=== PATIENT | male | born 1975 | race African-American/Black ===

== ENCOUNTER 2016-11-03 15:24 | Emergency (ER) | payer OTHER ==
[~2016-11-03] VITALS: Ht 170.2 cm; Wt 46.0 kg
[~2016-11-03 15:24] MED LIST: AZIT250T94 PO; LOPE2CAP PO; METR500T PO
[2016-11-03 15:32] VITALS: Ht 170.2 cm; Wt 46.0 kg
[2016-11-03] MEDS ORDERED: LACTATED RINGER'S 1,000 ML IV STA (17:06)
[2016-11-03 17:27] LABS: BASOPHIL # 0.1 10^3/ul (0.0-0.1); BASOPHILS % 0.8 % (0.0-2.0); EOSINOPHILS # 0.1 10^3/ul (0.0-0.5); EOSINOPHILS % 1.9 % (0.0-7.0); HEMATOCRIT 36.2 % (42.0-52.0); HEMOGLOBIN 12.4 g/dl (14.0-18.0); LYMPHOCYTES # 1.6 10^3/ul (0.8-2.9); LYMPHOCYTES % 25.7 % (15.0-51.0); MEAN CORPUSCULAR HEMOGLOBIN 29.5 pg (29.0-33.0); MEAN CORPUSCULAR HGB CONC 34.3 g/dl (32.0-37.0); MEAN CORPUSCULAR VOLUME 86.2 fl (82.0-101.0); MEAN PLATELET VOLUME 10.5 fl (7.4-10.4); MONOCYTE # 0.7 10^3/ul (0.3-0.9); MONOCYTES % 10.8 % (0.0-11.0); NEUTROPHIL # 3.8 10^3/ul (1.6-7.5); NEUTROPHILS % 60.5 % (39.0-77.0); PLATELET COUNT 234 10^3/UL (140-415); RED CELL DISTRIBUTION WIDTH 12.2 % (11.5-14.5); WHITE BLOOD COUNT 6.3 10^3/ul (4.8-10.8)
[2016-11-03 17:47] LABS: ALANINE AMINOTRANSFERASE 49 IU/L (13-69); ALBUMIN 3.7 g/dl (3.3-4.9); ALBUMIN/GLOBULIN RATIO 1.19; ALKALINE PHOSPHATASE 94 IU/L (42-121); ANION GAP 17 (8-16); ASPARTATE AMINO TRANSFERASE 29 IU/L (15-46); BILIRUBIN,INDIRECT 0.2 mg/dl (0-1.1); BILIRUBIN,TOTAL 0.2 mg/dl (0.2-1.3); BLOOD UREA NITROGEN 10 mg/dl (7-20); CALCIUM 8.5 mg/dl (8.4-10.2); CARBON DIOXIDE 23 mmol/L (21-31); CHLORIDE 93 mmol/L (97-110); CREATININE 1.08 mg/dl (0.61-1.24); POTASSIUM 3.6 mmol/L (3.5-5.1); SODIUM 129 mmol/L (135-144); TOTAL PROTEIN 6.8 g/dl (6.1-8.1)
[2016-11-03 18:13] LABS: GLUCOSE 657 mg/dl (70-220)
[2016-11-03] MEDS ORDERED: INSULIN HUMAN REGULAR 100 UNIT in SOD CHLORIDE 0.9% 99 ML IV STA (18:14)
[2016-11-03] MEDS ORDERED: INSULIN REGULAR 10 ML INJ IV STA (18:14)
[2016-11-03 18:49] LABS: ACETONE NEGATIVE (NEGATIVE)
[2016-11-03 18:52] LABS: ADD UMIC NO; UR ASCORBIC ACID NEGATIVE (NEGATIVE); UR BILIRUBIN (Dip) NEGATIVE (NEGATIVE); UR BLOOD (Dip) NEGATIVE (NEGATIVE); UR CLARITY CLEAR (CLEAR); UR COLOR COLORLESS (YELLOW); UR GLUCOSE (Dip) 3+ mg/dL (NEGATIVE); UR KETONES (Dip) NEGATIVE (NEGATIVE); UR LEUKOCYTE ESTERASE (Dip) NEGATIVE Leu/ul (NEGATIVE); UR NITRITE (Dip) NEGATIVE (NEGATIVE); UR SPECIFIC GRAVITY (Dip) 1.029 (1.003-1.030); UR TOTAL PROTEIN (Dip) NEGATIVE (NEGATIVE); UR UROBILINOGEN (Dip) NEGATIVE (NEGATIVE)
--- NOTE | 2016-11-03 19:15 | ERD ---
ER Documentation Chief Complaint Date/Time DATE: 11/03/16 TIME: 19:12 Chief Complaint Hyperglycemia HPI This a 41-year-old insulin-dependent diabetic who states he is taking his insulin but he has been having chronic diarrhea for 3 months. He is seen doctors about it and told in the do not know what is wrong. The patient says that he has some moist diarrhea that he did have spontaneous bowel movements at times when he coughs. He also states he feels weak and tired today. The patient is a very poor historian. He says he has been taking his insulin but her sugar has been running elevated he does not know the numbers. No vomiting no abdominal pain headaches. He does just complain of generalized weakness and malaise ROS All systems reviewed and are negative except as per history of present illness. Medications Home Meds Active Scripts Diphenoxylate HCl/Atropine (Lomotil 2.5-0.025 mg Tablet) 1 Each Tablet, 1 TAB PO QID Y for DIARRHEA, #10 TAB Prov:JERROD BOB DO 11/03/16 Ciprofloxacin Hcl* (Ciprofloxacin Hcl*) 500 Mg Tablet, 500 MG PO BID for 10 Days , TAB Prov:JERROD BOB DO 11/03/16 Metronidazole* (Flagyl*) 500 Mg Tablet, 500 MG PO TID for 10 Days, TAB Prov:JERROD BOB. DO 11/03/16 Metronidazole* (Flagyl*) 500 Mg Tablet, 500 MG PO BID for 7 Days, TAB Prov:DOMENICA CHAPMAN MD 12/08/15 Azithromycin* (Zithromax*) 250 Mg Tablet, 250 MG PO .ZPACK DIRECTED, #6 TAB TAKE 500 MG (2 TABS) THE FIRST DAY THEN 250 MG (1 TAB) DAYS 2-5 Prov:DOMENICA CHAPMAN MD 12/08/15 Loperamide Hcl* (Imodium*) 2 Mg Capsule, 2 MG PO .AFTER EA LOOSE BM Y for DIARRHEA, #15 TAB Prov:DOMENICA CHAPMAN MD 12/08/15 Reported Medications [None] No Conflict Check 07/15/10 Allergies Allergies: Coded Allergies: No Known Allergy (Unverified , 12/08/15) PMhx/Soc Medical and Surgical Hx: pt denies Surgical Hx History of Surgery: No Anesthesia Reaction: No Hx Neurological Disorder: No Hx Respiratory Disorders: No Hx Cardiac Disorders: No Hx Psychiatric Problems: No Hx Miscellaneous Medical Probl: Yes (type 1 diabetes) Hx Alcohol Use: No Hx Substance Use: Yes (marijuana and crystal meth) Hx Tobacco Use: Yes Smoking Status: Current every day smoker FmHx Family History: No coronary disease Physical Exam Vitals Vital Signs Date Time Temp Pulse Resp B/P Pulse Ox O2 Delivery O2 Flow Rate FiO2 11/03/16 20:55 98.1 72 20 129/87 96 Room Air 11/03/16 18:52 94 17 14/91 100 Room Air 11/03/16 17:19 85 15 132/97 98 Room Air 11/03/16 15:32 98.0 101 20 140/90 98 Physical Exam Const: Well-developed, well-nourished Head: Atraumatic, normocephalic Eyes: Normal Conjunctiva, PERRLA, EOMI, normal sclera, no nystagmus ENT: Normal External Ears, Nose and Mouth, moist mucus membranes. Neck: Full range of motion. No meningismus, no lymphadenopathy. Resp: Clear to auscultation bilaterally, no wheezing, rhonchi, rales Cardio: Regular rate and rhythm, no murmurs, S1 S2 present Abd: Soft, non tender x 4, non distended. Normal bowel sounds, no guarding or rebound, no pulsitile abdominal masses or bruits Skin: No petechiae or rashes, no ecchymosis , no maculopapular rash Back: No midline or flank tenderness Ext: No cyanosis, or edema, FROM x 4, normal inspection, neurovascularly intact x 4 Neur: Awake and alert, STR 5/5 x 4, sensation intact x 4, no focal findings, cerebellum intact Psych: [Flat affect, limited conversation most of the history is given from the girlfriend Result Diagram: 11/03/16 1712 11/03/16 1712 Results 24 hrs Laboratory Tests Test 11/03/16 16:16 11/03/16 17:12 11/03/16 18:00 11/03/16 18:52 Bedside Glucose > 595mg/dL 535mg/dL White Blood Count 6.310^3/ul Red Blood Count 4.2010^6/ul Hemoglobin 12.4g/dl Hematocrit 36.2% Mean Corpuscular Volume 86.2fl Mean Corpuscular Hemoglobin 29.5pg Mean Corpuscular Hemoglobin Concent 34.3g/dl Red Cell Distribution Width 12.2% Platelet Count 96462^3/UL Mean Platelet Volume 10.5fl Neutrophils % 60.5% Lymphocytes % 25.7% Monocytes % 10.8% Eosinophils % 1.9% Basophils % 0.8% Nucleated Red Blood Cells % 0.0/100WBC Neutrophils # 3.810^3/ul Lymphocytes # 1.610^3/ul Monocytes # 0.710^3/ul Eosinophils # 0.110^3/ul Basophils # 0.110^3/ul Nucleated Red Blood Cells # 0.010^3/ul Sodium Level 129mmol/L Potassium Level 3.6mmol/L Chloride Level 93mmol/L Carbon Dioxide Level 23mmol/L Anion Gap 17 Blood Urea Nitrogen 10mg/dl Creatinine 1.08mg/dl Glucose Level 657mg/dl Calcium Level 8.5mg/dl Total Bilirubin 0.2mg/dl Direct Bilirubin 0.00mg/dl Indirect Bilirubin 0.2mg/dl Acetone Level (Chemistry) NEGATIVE Aspartate Amino Transf (AST/SGOT) 29IU/L Alanine Aminotransferase (ALT/SGPT) 49IU/L Alkaline Phosphatase 94IU/L Total Protein 6.8g/dl Albumin 3.7g/dl Globulin 3.10g/dl Albumin/Globulin Ratio 1.19 Urine Color COLORLESS Urine Clarity CLEAR Urine pH 6.0 Urine Specific [place] 1.029 Urine Ketones NEGATIVEmg/dL Urine Nitrite NEGATIVEmg/dL Urine Bilirubin NEGATIVEmg/dL Urine Urobilinogen NEGATIVEmg/dL Urine Leukocyte Esterase NEGATIVELeu/ul Urine Hemoglobin NEGATIVEmg/dL Urine Glucose 3+mg/dL Urine Total Protein NEGATIVEmg/dl Test 11/03/16 20:43 Bedside Glucose 308mg/dL Current Medications Medications (Trade) Dose Ordered Sig/Malik Route PRN Reason Start Time Stop Time Status Last Admin Dose Admin Lactated Ringer's (Lr) 1,000 ml @ 1,000 mls/hr Q1H STAT IV 11/03/16 17:06 11/03/16 18:05 DC 11/03/16 17:23 Insulin Human Regular 10 unit 10 unit ONCE STAT IV 11/03/16 18:14 11/03/16 18:17 DC Insulin Human Regular/Sodium Chloride (Novolin-R/NS) 100 ml @ 0 mls/hr TITRATE STAT IV 11/03/16 18:14 11/03/16 18:17 DC Insulin Human Regular 14 unit 14 unit ONCE ONCE SC 11/03/16 19:30 11/03/16 19:31 DC 11/03/16 19:11 Sodium Chloride (NS) 1,000 ml @ 1,000 mls/hr Q1H ONCE IV 11/03/16 19:30 11/03/16 20:29 DC 11/03/16 19:31 Procedures/MDM The patient is not in DKA. His very elevated glucose and he will be given IV fluids and subcutaneous insulin. When his glucose is less than 300 will discharge home. The patient's having chronic diarrhea will attempt a round of Cipro and Flagyl. He may have some atypical bug Patient received 2 L IV fluid and 14 units of subcu insulin. After couple of hours the patient's blood sugar was rechecked at the level of 308. Discharge home on Lomotil Cipro and Flagyl and the patient does have insulin at home to take Departure Diagnosis: Primary Impression: Hyperglycemia Additional Impression: Chronic diarrhea Condition: Stable JERROD BOB DO Nov 03, 2016 19:15
[2016-11-03] MEDS ORDERED: METR500T PO (19:16)
[2016-11-03] MEDS ORDERED: DIPH1TAB PO (19:16)
[2016-11-03] MEDS ORDERED: CIPR500T4 PO (19:16)
[2016-11-03] MEDS ORDERED: INSULIN REGULAR 10 ML INJ SC ONE (19:30)
[2016-11-03] MEDS ORDERED: SOD CHLORIDE 0.9% 1,000 ML IV ONE (19:30)
[2016-11-03 20:55] VITALS: TEMP 98.1
[2016-11-03 22:36] VITALS: BP 116/71; PULSE 72; RESP 20
== END 2016-11-03 22:40 | disposition home or self-care (01) ==
LOC: E/R 15:24
DX: E10.65 Type 1 diabetes mellitus with hyperglycemia (principal); R19.7 Diarrhea, unspecified; F17.210 Nicotine dependence, cigarettes, uncomplicated; Z79.4 Long term (current) use of insulin
CPT/HCPCS: 36415; 80053; 81003; 82010; 82962; 85025; 96360; 96361; 96372; J1815; J7030; J7120; Z7502; Z7610

== ENCOUNTER 2017-01-08 17:44 | Emergency (ER) | payer OTHER ==
[~2017-01-08] VITALS: Ht 152.4 cm; Wt 60.0 kg
[~2017-01-08 17:44] MED LIST changes: +CIPR500T4 PO; +DIPH1TAB PO
[2017-01-08 17:49] VITALS: Ht 152.4 cm; Wt 60.0 kg
[2017-01-08] MEDS ORDERED: LANT3I SC (18:20)
[2017-01-08] MEDS ORDERED: LOPE2CAP PO (18:20)
[2017-01-08] MEDS ORDERED: NOVO3I SC (18:20)
[2017-01-08 19:14] VITALS: BP 127/85; PULSE 100; RESP 17; TEMP 98.3
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
[2017-01-08] MEDS ORDERED: LOPERAMIDE 2 MG CAP PO ONE (21:00)
== END 2017-01-08 21:00 | disposition home or self-care (01) ==
LOC: E/R 17:44
DX: E10.9 Type 1 diabetes mellitus without complications (principal); F17.210 Nicotine dependence, cigarettes, uncomplicated; Z79.4 Long term (current) use of insulin
CPT/HCPCS: Z7502; Z7610; 99283

== ENCOUNTER 2017-01-15 16:49 | Emergency (ER) | payer OTHER ==
[~2017-01-15] VITALS: Ht 165.1 cm; Wt 60.0 kg
[~2017-01-15 16:49] MED LIST changes: +LANT3I SC; +NOVO3I SC
[2017-01-15 16:58] VITALS: Ht 165.1 cm; Wt 60.0 kg
[2017-01-15] MEDS ORDERED: SOD CHLORIDE 0.9% 2,000 ML IV STA (17:17)
[2017-01-15 17:35] LABS: BASOPHILS % 0.5 % (0.0-2.0); EOSINOPHILS # 0.1 10^3/ul (0.0-0.5); EOSINOPHILS % 0.8 % (0.0-7.0); HEMATOCRIT 37.2 % (42.0-52.0); HEMOGLOBIN 12.8 g/dl (14.0-18.0); LYMPHOCYTES # 1.2 10^3/ul (0.8-2.9); LYMPHOCYTES % 19.6 % (15.0-51.0); MEAN CORPUSCULAR HEMOGLOBIN 29.9 pg (29.0-33.0); MEAN CORPUSCULAR HGB CONC 34.4 g/dl (32.0-37.0); MEAN CORPUSCULAR VOLUME 86.9 fl (82.0-101.0); MEAN PLATELET VOLUME 10.7 fl (7.4-10.4); MONOCYTE # 0.7 10^3/ul (0.3-0.9); NEUTROPHILS % 67.8 % (39.0-77.0); PLATELET COUNT 214 10^3/UL (140-415); RED BLOOD COUNT 4.28 10^6/ul (4.70-6.10); RED CELL DISTRIBUTION WIDTH 12.3 % (11.5-14.5); WHITE BLOOD COUNT 5.9 10^3/ul (4.8-10.8)
[2017-01-15] MEDS ORDERED: INSU100I35 SQ (17:36)
[2017-01-15 17:47] LABS: MODE ROOM AIR; MetHgb Venous 0.3 %; Sample Type Blood venous; Venous Fraction OxyHgb 69.2 %; Venous Total Hemglobin 13.1 g/dl
[2017-01-15 17:51] LABS: ALBUMIN 3.5 g/dl (3.3-4.9); ALBUMIN/GLOBULIN RATIO 1.12; BILIRUBIN,INDIRECT 0.2 mg/dl (0-1.1); BILIRUBIN,TOTAL 0.2 mg/dl (0.2-1.3); CREATININE 0.91 mg/dl (0.61-1.24); MAGNESIUM 1.8 mg/dl (1.7-2.5); PHOSPHORUS 4.2 mg/dl (2.5-4.9); POTASSIUM 4.1 mmol/L (3.5-5.1); TOTAL PROTEIN 6.6 g/dl (6.1-8.1)
[2017-01-15] MEDS ORDERED: INSULIN LISPRO 100 UNIT/ML VIAL SC STA (18:26)
[2017-01-15] MEDS ORDERED: POTASSIUM CHLORIDE (SR) 20 MEQ TAB PO STA (18:26)
[2017-01-15 19:02] LABS: ADD UMIC NO; UR ASCORBIC ACID 20 mg/dL (NEGATIVE); UR BILIRUBIN (Dip) NEGATIVE (NEGATIVE); UR BLOOD (Dip) NEGATIVE (NEGATIVE); UR CLARITY CLEAR (CLEAR); UR COLOR STRAW (YELLOW); UR GLUCOSE (Dip) 3+ mg/dL (NEGATIVE); UR KETONES (Dip) NEGATIVE (NEGATIVE); UR LEUKOCYTE ESTERASE (Dip) NEGATIVE Leu/ul (NEGATIVE); UR NITRITE (Dip) NEGATIVE (NEGATIVE); UR SPECIFIC GRAVITY (Dip) 1.027 (1.003-1.030); UR TOTAL PROTEIN (Dip) NEGATIVE (NEGATIVE); UR UROBILINOGEN (Dip) NEGATIVE (NEGATIVE)
[2017-01-15] MEDS ORDERED: INSULIN REGULAR 10 ML INJ IV STA (19:30)
[2017-01-15] MEDS ORDERED: INSULIN REGULAR, HUMAN 100 UNIT/1 ML 3ML VIAL IV STA (19:43)
--- NOTE | 2017-01-15 20:00 | ERD ---
ER Documentation Chief Complaint Date/Time DATE: 01/15/17 TIME: 17:15 Chief Complaint Complains of bilateral leg pain that radiates to the back today HPI 42-year-old male with a history of insulin-dependent diabetes mellitus but poorly compliant presents to the ED complaining of a 2 day history of cramping of his arms and legs. Patient admits to a recent methamphetamine binge but stopped using 2 days ago. Noncompliant with medications. Patient also has a one-month history of intermittent episodes of watery diarrhea for which he was treated for in the ED previously on multiple occasions. Denies abdominal pain or back pain. Nausea with rare episodes of nonbloody, nonbilious emesis. Denies he hematochezia or melanotic stools. Denies chest pain or palpitations. No dysuria, polyuria, hematuria or flank pain. No URI symptoms, cough or shortness of breath. Generalized weakness but no headache, visual changes, focal weakness or numbness. No fevers or chills. ROS All systems reviewed and are negative except as per history of present illness. Medications Home Meds Active Scripts Insulin Glargine* (Lantus*) 100 Unit/Ml Soln, 1 UNIT SC DAILY, #1 VIAL Prov:MARTY PAVON MD 01/08/17 Diphenoxylate HCl/Atropine (Lomotil 2.5-0.025 mg Tablet) 1 Each Tablet, 1 TAB PO QID Y for DIARRHEA, #10 TAB Prov:JERROD BOB DO 11/03/16 Reported Medications Insulin Lispro (Humalog Anshu Kwikpen) 100 Unit/1 Ml Ins.pen.hf, 1 UNIT SQ QAM 01/15/17 Discontinued Reported Medications [None] No Conflict Check 07/15/10 Discontinued Scripts Loperamide Hcl* (Imodium*) 2 Mg Capsule, 2 MG PO Q6H Y for DIARRHEA, #10 CAP MAX 16 mg/day Prov:MARTY PAVON MD 01/08/17 Insulin Aspart* (Novolog Insulin Pen*) 100 Unit/Ml Soln, 1 UNIT SC WITH BREAKFAST, #1 EA Prov:MARTY PAVON MD 01/08/17 Ciprofloxacin Hcl* (Ciprofloxacin Hcl*) 500 Mg Tablet, 500 MG PO BID for 10 Days , TAB Prov:JERROD BOB DO 11/03/16 Metronidazole* (Flagyl*) 500 Mg Tablet, 500 MG PO TID for 10 Days, TAB Prov:JERROD BOB DO 11/03/16 Metronidazole* (Flagyl*) 500 Mg Tablet, 500 MG PO BID for 7 Days, TAB Prov:DOMENICA CHAPMAN MD 12/08/15 Azithromycin* (Zithromax*) 250 Mg Tablet, 250 MG PO .ZPACK DIRECTED, #6 TAB TAKE 500 MG (2 TABS) THE FIRST DAY THEN 250 MG (1 TAB) DAYS 2-5 Prov:DOMENICA CHAPMAN MD 12/08/15 Loperamide Hcl* (Imodium*) 2 Mg Capsule, 2 MG PO .AFTER EA LOOSE BM Y for DIARRHEA, #15 TAB Prov:DOMENICA CHAPMAN MD 12/08/15 Allergies Allergies: Coded Allergies: No Known Allergy (Unverified , 01/15/17) PMhx/Soc Reviewed in chart. As per HPI. History of Surgery: No Anesthesia Reaction: No Hx Neurological Disorder: No Hx Respiratory Disorders: No Hx Cardiac Disorders: No Hx Psychiatric Problems: No Hx Miscellaneous Medical Probl: Yes (type 1 diabetes) Hx Alcohol Use: No Hx Substance Use: Yes (marijuana and crystal meth) Hx Tobacco Use: Yes Smoking Status: Former smoker FmHx Reviewed in chart. As per HPI. Physical Exam Vitals Vital Signs Date Time Temp Pulse Resp B/P Pulse Ox O2 Delivery O2 Flow Rate FiO2 01/15/17 21:00 98.1 72 16 117/92 99 Room Air 01/15/17 19:17 82 16 132/92 99 Room Air 01/15/17 16:58 97.3 99 20 112/73 99 Physical Exam Const: [] Head: Atraumatic Eyes: Normal Conjunctiva ENT: Normal External Ears, Nose and Mouth. Neck: Full range of motion..~ No meningismus. Resp: Clear to auscultation bilaterally Cardio: Regular rate and rhythm, no murmurs Abd: Soft, non tender, non distended. Normal bowel sounds Skin: No petechiae or rashes Back: No midline or flank tenderness Ext: No cyanosis, or edema Neur: Awake and alert Psych: Normal Mood and Affect Result Diagram: 10/14/17 1710 10/14/17 1710 Results 24 hrs Laboratory Tests Test 01/15/17 17:08 01/15/17 17:10 01/15/17 17:17 01/15/17 18:00 Bedside Glucose > 595mg/dL White Blood Count 5.910^3/ul Red Blood Count 4.2810^6/ul Hemoglobin 12.8g/dl Hematocrit 37.2% Mean Corpuscular Volume 86.9fl Mean Corpuscular Hemoglobin 29.9pg Mean Corpuscular Hemoglobin Concent 34.4g/dl Red Cell Distribution Width 12.3% Platelet Count 32029^3/UL Mean Platelet Volume 10.7fl Neutrophils % 67.8% Lymphocytes % 19.6% Monocytes % 11.0% Eosinophils % 0.8% Basophils % 0.5% Nucleated Red Blood Cells % 0.0/100WBC Neutrophils # 4.010^3/ul Lymphocytes # 1.210^3/ul Monocytes # 0.710^3/ul Eosinophils # 0.110^3/ul Basophils # 0.010^3/ul Nucleated Red Blood Cells # 0.010^3/ul Sodium Level 125mmol/L Potassium Level 4.1mmol/L Chloride Level 92mmol/L Carbon Dioxide Level 25mmol/L Anion Gap 12 Blood Urea Nitrogen 14mg/dl Creatinine 0.91mg/dl Glucose Level 621mg/dl Calcium Level 9.0mg/dl Phosphorus Level 4.2mg/dl Magnesium Level 1.8mg/dl Total Bilirubin 0.2mg/dl Direct Bilirubin 0.00mg/dl Indirect Bilirubin 0.2mg/dl Aspartate Amino Transf (AST/SGOT) 35IU/L Alanine Aminotransferase (ALT/SGPT) 60IU/L Alkaline Phosphatase 117IU/L Total Protein 6.6g/dl Albumin 3.5g/dl Globulin 3.10g/dl Albumin/Globulin Ratio 1.12 Blood Gas Specimen Source Blood venous Arterial Blood Date Drawn 01/15/2017 5:42:30 PM Arterial Blood Gas Puncture Site VENOUS LINE Dung Test N/A Venous Blood pH 7.311 Venous Blood pCO2 (Temp Corrected) 38.9mmHG Venous Blood pO2 (Temp Corrected) 37.6mmHG Venous Blood HCO3 19.2mmol/L Venous Blood Oxygen Saturation 70.1mmHG Venous Blood Base Excess -6.5mmol/L Venous Blood Total Hemoglobin 13.1g/dl Venous Blood Oxyhemoglobin 69.2% Venous Blood Methemoglobin 0.3% Blood Gas A-a O2 Differential 65.5mmHg Carboxyhemoglobin 1.0% Blood Gas Temperature 37.0C Blood Gas Modality ROOM AIR FiO2 21.0% Blood Gas Critical Value Read Back MARC Robertson Blood Gas Notified Whom [facility] Blood Gas Notified Time 01/15/2017 5:47:16 PM Urine Color STRAW Urine Clarity CLEAR Urine pH 5.0 Urine Specific [place] 1.027 Urine Ketones NEGATIVEmg/dL Urine Nitrite NEGATIVEmg/dL Urine Bilirubin NEGATIVEmg/dL Urine Urobilinogen NEGATIVEmg/dL Urine Leukocyte Esterase NEGATIVELeu/ul Urine Hemoglobin NEGATIVEmg/dL Urine Glucose 3+mg/dL Urine Total Protein NEGATIVEmg/dl Test 01/15/17 18:27 01/15/17 19:28 01/15/17 20:09 Bedside Glucose 461mg/dL 416mg/dL 222mg/dL Current Medications Medications (Trade) Dose Ordered Sig/Malik Route PRN Reason Start Time Stop Time Status Last Admin Dose Admin Sodium Chloride (NS) 2,000 ml @ 1,000 mls/hr Q2H STAT IV 01/15/17 17:17 01/15/17 19:16 DC 01/15/17 17:39 Insulin Human Lispro (Humalog) 14 unit ONCE STAT SC 01/15/17 18:26 01/15/17 18:30 DC 01/15/17 18:45 Potassium Chloride (Klor-Con 20) 40 meq ONCE STAT PO 01/15/17 18:26 01/15/17 18:30 DC 01/15/17 18:37 Insulin Human Regular (Novolin-R) 10 unit ONCE STAT IV 01/15/17 19:30 01/15/17 19:32 DC Insulin Human Regular (Humulin R) 10 unit ONCE STAT IV 01/15/17 19:43 01/15/17 19:44 DC 01/15/17 19:51 Procedures/MDM DOCUMENTS REVIEWED: ED nurse, prior ED, prior records. MEDICAL DECISION MAKIN-year-old male with a history of insulin-dependent diabetes mellitus but poorly compliant presents to the ED complaining of a 2 day history of cramping of his arms and legs. Patient with poorly controlled diabetes mellitus and significant hypoglycemia but no anion gap, ketonuria or diabetic ketoacidosis. Hyperglycemia controlled with intravenous hydration, subcutaneous and intravenous insulin. No signs of an occult infectious process. Hypoglycemia likely secondary to poor compliance. Ongoing intermittent episodes of diarrhea but abdominal exam is benign without rebound, guarding or signs of peritonitis. Patient has already been treated with he has already been treated with multiple courses of antibiotics without relief. Bacterial enteritis is unlikely. He will need urgent outpatient gastroenterology consult. Stable for discharge of precautionary instructions and outpatient follow-up as counseled. Counseled patient and family regarding diagnostic workup, diagnosis and need for followup. Understands to return to ED if symptoms recur, worsen or any other concerns. Departure Diagnosis: Primary Impression: Hyperglycemia Additional Impressions: Insulin dependent diabetes mellitus Diarrhea Diarrhea type: unspecified type Qualified Code: R19.7 - Diarrhea, unspecified type Methamphetamine abuse Condition: Stable (Improved) BEATRIZ GREENFIELD MD Jan 15, 2017 20:00
[2017-01-15 21:00] VITALS: BP 117/92; PULSE 72; RESP 16; TEMP 98.1
== END 2017-01-15 21:29 | disposition home or self-care (01) ==
LOC: E/R 16:49
DX: E10.65 Type 1 diabetes mellitus with hyperglycemia (principal); R19.7 Diarrhea, unspecified; F15.10 Other stimulant abuse, uncomplicated; Z79.4 Long term (current) use of insulin; Z87.891 Personal history of nicotine dependence
CPT/HCPCS: 36415; 80053; 81003; 82803; 82962; 83735; 84100; 85025; 96372; 96374; J1815; J7030; Z7502; Z7610

== ENCOUNTER 2017-01-23 15:44 | Emergency (ER) | payer OTHER ==
[~2017-01-23] VITALS: Ht 157.5 cm; Wt 44.0 kg
[~2017-01-23 15:44] MED LIST changes: -AZIT250T94 PO; -CIPR500T4 PO; +INSU100I35 SQ; -LOPE2CAP PO; -METR500T PO; -NOVO3I SC
[2017-01-23 15:46] VITALS: Ht 157.5 cm; Wt 44.0 kg
[2017-01-23] MEDS ORDERED: SOD CHLORIDE 0.9% 1,000 ML IV STA (15:54)
[2017-01-23] MEDS ORDERED: LACTATED RINGER'S 1,000 ML IV STA (15:54)
[2017-01-23 16:36] LABS: BASOPHIL # 0.1 10^3/ul (0.0-0.1); BASOPHILS % 0.7 % (0.0-2.0); EOSINOPHILS # 0.1 10^3/ul (0.0-0.5); EOSINOPHILS % 1.6 % (0.0-7.0); HEMATOCRIT 39.6 % (42.0-52.0); HEMOGLOBIN 13.6 g/dl (14.0-18.0); LYMPHOCYTES # 1.1 10^3/ul (0.8-2.9); LYMPHOCYTES % 14.5 % (15.0-51.0); MEAN CORPUSCULAR HEMOGLOBIN 30.1 pg (29.0-33.0); MEAN CORPUSCULAR HGB CONC 34.3 g/dl (32.0-37.0); MEAN CORPUSCULAR VOLUME 87.6 fl (82.0-101.0); MEAN PLATELET VOLUME 10.6 fl (7.4-10.4); MONOCYTE # 0.6 10^3/ul (0.3-0.9); MONOCYTES % 8.1 % (0.0-11.0); NEUTROPHIL # 5.7 10^3/ul (1.6-7.5); NEUTROPHILS % 74.6 % (39.0-77.0); PLATELET COUNT 217 10^3/UL (140-415); RED BLOOD COUNT 4.52 10^6/ul (4.70-6.10); RED CELL DISTRIBUTION WIDTH 12.4 % (11.5-14.5); WHITE BLOOD COUNT 7.7 10^3/ul (4.8-10.8)
[2017-01-23 16:52] LABS: MODE ROOM AIR; MetHgb Venous 0.2 %; Sample Type Blood venous; Venous COHb 2.2 %; Venous Fraction OxyHgb 78.8 %; Venous Total Hemglobin 14.1 g/dl
[2017-01-23 16:56] LABS: ANION GAP 12 (8-16); BLOOD UREA NITROGEN 12 mg/dl (7-20); CALCIUM 9.2 mg/dl (8.4-10.2); CARBON DIOXIDE 25 mmol/L (21-31); CHLORIDE 96 mmol/L (97-110); CREATININE 0.86 mg/dl (0.61-1.24); MAGNESIUM 1.6 mg/dl (1.7-2.5); PHOSPHORUS 3.7 mg/dl (2.5-4.9); POTASSIUM 3.5 mmol/L (3.5-5.1); SODIUM 129 mmol/L (135-144)
[2017-01-23 17:05] LABS: GLUCOSE 636 mg/dl (70-220)
[2017-01-23 17:09] LABS: TROPONIN-I < 0.012 ng/ml (0.00-0.12)
--- NOTE | 2017-01-23 17:22 | RADRPT ---
PROCEDURE: Chest x-ray CLINICAL INDICATION: Hyperglycemia TECHNIQUE: Chest single view COMPARISON: None FINDINGS: The heart is normal in size. The pulmonary vessels are normal in caliber. The lungs are clear. Th e costophrenic angles are sharp. The visualized bony thorax is unremarkable. IMPRESSION: No acute cardiopulmonary disease. RPTAT: HH .Rafat Lee MD, Date Time Electronically viewed and signed by .Rafat Lee MD, MD on 01/23/2017 17:21 .W/
[2017-01-23 17:46] VITALS: BP 115/60; PULSE 75; RESP 18; TEMP 98
[2017-01-23] MEDS ORDERED: INSULIN LISPRO 100 UNIT/ML VIAL SC STA (17:46)
--- NOTE | 2017-01-23 19:14 | ERD ---
ER Documentation Chief Complaint Chief Complaint DEPOLINA WEAK, OFF INSULIN X 2 DAYS HPI This is a 42-year-old male who presents to the emergency room with generalized weakness. The patient is a very poor historian and very uncooperative with his care in the emergency department. He states that he has been off his insulin for 2 days. He cannot tell me what he takes or what dosing he takes. He denies any chest pain or shortness of breath, no nausea vomiting or diarrhea. He just describes generalized weakness. He refuses to answer further questions. Remainder of HPI is limited. ROS Patient very uncooperative Medications Home Meds Active Scripts Insulin Glargine* (Lantus*) 100 Unit/Ml Soln, 1 UNIT SC DAILY, #1 VIAL Prov:MARTY PAVON MD 01/08/17 Diphenoxylate HCl/Atropine (Lomotil 2.5-0.025 mg Tablet) 1 Each Tablet, 1 TAB PO QID Y for DIARRHEA, #10 TAB Prov:JERROD BOB DO 11/03/16 Reported Medications Insulin Lispro (Humalog Anshu Kwikpen) 100 Unit/1 Ml Ins.pen.hf, 1 UNIT SQ QAM 01/15/17 Allergies Allergies: Coded Allergies: No Known Allergy (Unverified , 01/23/17) PMhx/Soc History of Surgery: No Anesthesia Reaction: No Hx Neurological Disorder: No Hx Respiratory Disorders: No Hx Cardiac Disorders: No Hx Psychiatric Problems: No Hx Miscellaneous Medical Probl: Yes (type 1 diabetes) Hx Alcohol Use: No Hx Substance Use: Yes (marijuana and crystal meth) Hx Tobacco Use: Yes Smoking Status: Current some day smoker FmHx Family History: diabetes Physical Exam Vitals Vital Signs Date Time Temp Pulse Resp B/P Pulse Ox O2 Delivery O2 Flow Rate FiO2 01/23/17 17:46 98.0 75 18 115/60 99 01/23/17 15:46 98.6 101 20 105/63 99 Physical Exam General: Thin male, uncooperative but no acute distress Head: Normocephalic, atraumatic. Eyes: Pupils equally reactive, EOM intact ENT: Dry mucous membranes Neck: Supple, no lymphadenopathy Respiratory: Lungs clear bilaterally, no distress Cardiovascular: RRR, no murmurs, rubs, or gallops Abdominal: Soft, non-tender, non-distended, no peritoneal signs : Deferred MSK: No edema, no unilateral swelling, 5/5 strength Neurologic: Poor participation but moving all extremities and nonfocal exam Skin: No rash Psych: Normal mood Result Diagram: 01/23/17 1630 01/23/17 1630 Results 24 hrs Laboratory Tests Test 01/23/17 15:54 01/23/17 15:57 01/23/17 16:30 01/23/17 16:36 Blood Gas Specimen Source Blood venous Arterial Blood Date Drawn 01/23/2017 4:40:33 PM Arterial Blood Gas Puncture Site VENOUS LINE Dung Test N/A Venous Blood pH 7.344 Venous Blood pCO2 (Temp Corrected) 42.9mmHG Venous Blood pO2 (Temp Corrected) 46.3mmHG Venous Blood HCO3 22.8mmol/L Venous Blood Oxygen Saturation 80.7mmHG Venous Blood Base Excess -2.8mmol/L Venous Blood Total Hemoglobin 14.1g/dl Venous Blood Oxyhemoglobin 78.8% Venous Blood Methemoglobin 0.2% Carboxyhemoglobin 2.2% Blood Gas Temperature 37.0C Blood Gas Modality ROOM AIR FiO2 21.0% Blood Gas Notified Whom Elsie Blood Gas Notified Time 01/23/2017 4:52:37 PM Bedside Glucose > 595mg/dL 541mg/dL White Blood Count 7.710^3/ul Red Blood Count 4.5210^6/ul Hemoglobin 13.6g/dl Hematocrit 39.6% Mean Corpuscular Volume 87.6fl Mean Corpuscular Hemoglobin 30.1pg Mean Corpuscular Hemoglobin Concent 34.3g/dl Red Cell Distribution Width 12.4% Platelet Count 59258^3/UL Mean Platelet Volume 10.6fl Neutrophils % 74.6% Lymphocytes % 14.5% Monocytes % 8.1% Eosinophils % 1.6% Basophils % 0.7% Nucleated Red Blood Cells % 0.0/100WBC Neutrophils # 5.710^3/ul Lymphocytes # 1.110^3/ul Monocytes # 0.610^3/ul Eosinophils # 0.110^3/ul Basophils # 0.110^3/ul Nucleated Red Blood Cells # 0.010^3/ul Sodium Level 129mmol/L Potassium Level 3.5mmol/L Chloride Level 96mmol/L Carbon Dioxide Level 25mmol/L Anion Gap 12 Blood Urea Nitrogen 12mg/dl Creatinine 0.86mg/dl Glucose Level 636mg/dl Calcium Level 9.2mg/dl Phosphorus Level 3.7mg/dl Magnesium Level 1.6mg/dl Troponin I < 0.012ng/ml Test 01/23/17 18:06 01/23/17 19:19 Bedside Glucose 504mg/dL 463mg/dL Current Medications Medications (Trade) Dose Ordered Sig/Malik Route PRN Reason Start Time Stop Time Status Last Admin Dose Admin Sodium Chloride 1,000 ml @ 1,000 mls/hr Q1H STAT IV 01/23/17 15:54 01/23/17 16:53 DC 01/23/17 16:53 Lactated Ringer's (Lr) 1,000 ml @ 1,000 mls/hr Q1H STAT IV 01/23/17 15:54 01/23/17 16:53 DC 01/23/17 15:54 Insulin Human Lispro (Humalog) 4 unit ONCE STAT SC 01/23/17 17:46 01/23/17 17:52 DC 01/23/17 18:09 Procedures/MDM EKG, MONITORS, & DIAGNOSTIC IMAGING: EKG: I reviewed and interpreted a 12-lead EKG. Rhythm: Normal sinus rhythm Ectopy: None Intervals: No abnormalities ST segments: No elevations or depressions T waves: No contiguous inversions Chest x-ray: I reviewed and interpreted a 1 view of the chest Mediastinum: No enlargement Cardiac silhouette: No cardiomegaly Airspace: Clear lung lewis bilaterally without evidence of pneumothorax Bones: No evidence of fracture LAB INTERPRETATION: Hyperglycemia without evidence of diabetic ketoacidosis, negative troponin MEDICAL DECISION MAKING: The patient presents with hyperglycemia. He is out of his insulin for 2 days. The patient will need screening to rule out diabetic ketoacidosis including laboratory testing, urinalysis and venous blood gas. No clear trigger other than the patient's noncompliance with medication regimen. It should be noted that the patient is very poorly cooperative with history and physical exam and is not participating in his care in the emergency department. He is refusing to provide me with dosing of his insulin that includes Lantus and some short acting medication. He also through the paperwork at the registration person when she was trying to obtain information. The patient does not appear to have evidence of acute organic pathology such as infection or ischemia at this time. No indication for diagnostic imaging other than chest x-ray to rule out pneumonia. ER COURSE: Patient was given 1 L of saline, 1 L of lactated Ringer's. The patient's venous blood gas shows no evidence of acidosis. No anion gap. The patient does have hyperglycemia without evidence of diabetic ketoacidosis. He is refusing to provide a urine sample. The patient was given 4 units of subcutaneous Humalog. At this time the patient does not require hospitalization. When I went to review the patient's laboratory testing and reevaluate the patient he is refusing to have a conversation. He continues to pull the covers over his head. When I asked him to give me his dosing of his regular medications so that I can refill his prescriptions he said, "you're the doctor, you tell me, stop fucking bothering me". Unfortunately looking back on the patient's electronic medical record I do not have a clear dosing of the patient's insulin. For this reason I feel very uncomfortable prescribing Lantus or short acting insulin. The patient is not giving me a phone number to local pharmacy. I do not feel that I can provide the patient with outpatient prescription. He needs to call his primary care physician tomorrow to have a refill of his insulin. He was advised that if he cannot provide me the dosing he is at significant risk for returning to the emergency room in diabetic ketoacidosis. At this point the patient is refusing to have a further conversation and yells at me and states that he will call somebody to take him home. I am very concerned that the patient is failing to cooperate and participate in his care. The patient is at significant risk for complications of diabetes in his lifetime. I attempted to inform him of this but he was unwilling to have a conversation. I kept the patient and/or family informed of laboratory and diagnostic imaging results throughout the emergency room course. DISPOSITION PLAN: We discussed follow up with the patient's primary care doctor within 24 to 48 hours as needed. We also discussed return to the emergency room for worsening symptoms or worsening condition. Outpatient referral: Stat follow-up with primary care physician for refill of insulin. Departure Diagnosis: Primary Impression: Hyperglycemia Additional Impressions: Noncompliance with medication regimen Generalized weakness Condition: Stable Patient Instructions: Hyperglycemia (High Blood Sugar) Additional Instructions: I cannot provide you with a prescription for your regular acting and long- acting insulin because you cannot provide me with dosing. You need to call your primary care physician tomorrow morning for a refill of your insulin. If you go a prolonged period of time without your insulin you can become very sick. You need to remember or write down dosing regimen so that we can help you in the future. You need to be an active participant in you care for diabetes for improved long-term outcomes. MAHOGANY DANIELS MD Jan 23, 2017 19:13
== END 2017-01-23 21:00 | disposition home or self-care (01) ==
LOC: E/R 15:44
DX: E10.65 Type 1 diabetes mellitus with hyperglycemia (principal); F17.210 Nicotine dependence, cigarettes, uncomplicated; Z79.4 Long term (current) use of insulin; Z91.14 Patient's other noncompliance with medication regimen
CPT/HCPCS: 36415; 71010; 80048; 82803; 82962; 83735; 84100; 84484; 85025; 93005; 96372; J1815; J7030; J7120; Z7502

== ENCOUNTER 2017-01-24 14:36 | Emergency (ER) | payer OTHER ==
[~2017-01-24] VITALS: Ht 162.6 cm; Wt 60.0 kg
[2017-01-24 14:40] VITALS: Ht 162.6 cm; Wt 60.0 kg
[2017-01-24] MEDS ORDERED: LIDOCAINE/MYLANTA 40 ML BTL PO STA (15:19)
[2017-01-24] MEDS ORDERED: BELLADONNA/PHENOBARBITAL TAB PO STA (15:19)
[2017-01-24] MEDS ORDERED: INSULIN LISPRO 100 UNIT/ML VIAL SC STA (15:26)
[2017-01-24] MEDS ORDERED: SOD CHLORIDE 0.9% 1,000 ML IV STA (15:26)
[2017-01-24 16:23] LABS: BASOPHIL # 0.1 10^3/ul (0.0-0.1); BASOPHILS % 0.5 % (0.0-2.0); EOSINOPHILS # 0.1 10^3/ul (0.0-0.5); EOSINOPHILS % 1.3 % (0.0-7.0); HEMATOCRIT 39.1 % (42.0-52.0); HEMOGLOBIN 13.2 g/dl (14.0-18.0); LYMPHOCYTES % 10.9 % (15.0-51.0); MEAN CORPUSCULAR HEMOGLOBIN 29.9 pg (29.0-33.0); MEAN CORPUSCULAR HGB CONC 33.8 g/dl (32.0-37.0); MEAN CORPUSCULAR VOLUME 88.5 fl (82.0-101.0); MEAN PLATELET VOLUME 10.5 fl (7.4-10.4); MONOCYTE # 0.7 10^3/ul (0.3-0.9); NEUTROPHIL # 7.2 10^3/ul (1.6-7.5); NEUTROPHILS % 78.6 % (39.0-77.0); PLATELET COUNT 211 10^3/UL (140-415); RED BLOOD COUNT 4.42 10^6/ul (4.70-6.10); RED CELL DISTRIBUTION WIDTH 12.5 % (11.5-14.5); WHITE BLOOD COUNT 9.1 10^3/ul (4.8-10.8)
[2017-01-24 16:47] LABS: ALBUMIN 3.2 g/dl (3.3-4.9); ALBUMIN/GLOBULIN RATIO 1.06; BILIRUBIN,INDIRECT 0.1 mg/dl (0-1.1); BILIRUBIN,TOTAL 0.1 mg/dl (0.2-1.3); CALCIUM 8.1 mg/dl (8.4-10.2); CREATININE 0.94 mg/dl (0.61-1.24); POTASSIUM 4.3 mmol/L (3.5-5.1); TOTAL PROTEIN 6.2 g/dl (6.1-8.1)
[2017-01-24] MEDS ORDERED: SOD CHLORIDE 0.9% 1,000 ML IV ONE (18:00)
[2017-01-24] MEDS ORDERED: CALCIUM GLUCONATE 10% 1 GM in SOD CHLORIDE 0.9% 100 ML IVPB ONE (19:00)
--- NOTE | 2017-01-24 19:09 | ERD ---
ER Documentation Chief Complaint Chief Complaint abdominal pain for 3 days HPI This is a 42-year-old male who presents to the emergency room with signs of diffuse abdominal pain and cramping which has been nonexertional nonradiating. The patient is a very poor historian and very uncooperative with his care in the emergency department. He states that he has been off his insulin for 3 days. He cannot tell me what he takes or what dosing he takes. He denies any chest pain or shortness of breath, no nausea vomiting or diarrhea. He just describes generalized weakness with abdominal pain. He refuses to answer further questions. Remainder of HPI is limited. ROS All systems reviewed and are negative except as per history of present illness. Medications Home Meds Active Scripts Insulin Glargine* (Lantus*) 100 Unit/Ml Soln, 1 UNIT SC DAILY, #1 VIAL Prov:MARTY PAVON MD 01/08/17 Diphenoxylate HCl/Atropine (Lomotil 2.5-0.025 mg Tablet) 1 Each Tablet, 1 TAB PO QID Y for DIARRHEA, #10 TAB Prov:JERROD BOB DO 11/03/16 Reported Medications Insulin Lispro (Humalog Anshu Kwikpen) 100 Unit/1 Ml Ins.pen.hf, 1 UNIT SQ QAM 01/15/17 Allergies Allergies: Coded Allergies: No Known Allergy (Unverified , 01/23/17) PMhx/Soc Diabetes mellitus History of Surgery: No Anesthesia Reaction: No Hx Neurological Disorder: No Hx Respiratory Disorders: No Hx Cardiac Disorders: No Hx Psychiatric Problems: No Hx Miscellaneous Medical Probl: No Hx Alcohol Use: No Hx Substance Use: Yes (marijuana and crystal meth) Hx Tobacco Use: Yes Smoking Status: Current every day smoker FmHx Family History: No diabetes Physical Exam Vitals Vital Signs Date Time Temp Pulse Resp B/P Pulse Ox O2 Delivery O2 Flow Rate FiO2 01/24/17 14:40 97.9 94 18 116/86 100 Physical Exam GENERAL: Well-developed, well-nourished, appears dehydrated HEENT: Dry mucous membranes, pink conjunctiva, no cervical spine tenderness or step-off deformities, no goiter, no jaundice or icterus, extraocular movements intact without pain. No submandibular induration, and no pharyngeal erythema NEURO: Alert and oriented 3, cranial nerves II through XII intact bilaterally, pupils equal round reactive to light, no focal deficits or facial asymmetry, sensation intact distally Strength 5/5 in upper and lower extremities bilaterally CARDIAC: Regular rate and rhythm, no murmurs rubs or gallops LUNGS: Clear bilaterally no wheezing crackles or stridor ABDOMEN: Soft nontender, no guarding, no rigidity, no rebound, no psoas sign no obturator sign. Normoactive bowel sounds SKIN: Warm and dry to touch, no abrasions, contusions, or hematomas, no lacerations, no ecchymosis, no target lesions, and without ulcers EXTREMITIES: No clubbing cyanosis or edema, calves are bilaterally symmetrical, no Homans sign, no popliteal cord sign. Distal pulses equal and bilateral PSYCH: Normal affect without agitation or irritability Result Diagram: 01/24/17 1600 01/24/17 1600 Results 24 hrs Laboratory Tests Test 01/24/17 15:26 01/24/17 16:00 01/24/17 17:23 Bedside Glucose 481mg/dL 400mg/dL White Blood Count 9.110^3/ul Red Blood Count 4.4210^6/ul Hemoglobin 13.2g/dl Hematocrit 39.1% Mean Corpuscular Volume 88.5fl Mean Corpuscular Hemoglobin 29.9pg Mean Corpuscular Hemoglobin Concent 33.8g/dl Red Cell Distribution Width 12.5% Platelet Count 83153^3/UL Mean Platelet Volume 10.5fl Neutrophils % 78.6% Lymphocytes % 10.9% Monocytes % 8.0% Eosinophils % 1.3% Basophils % 0.5% Nucleated Red Blood Cells % 0.0/100WBC Neutrophils # 7.210^3/ul Lymphocytes # 1.010^3/ul Monocytes # 0.710^3/ul Eosinophils # 0.110^3/ul Basophils # 0.110^3/ul Nucleated Red Blood Cells # 0.010^3/ul Sodium Level 129mmol/L Potassium Level 4.3mmol/L Chloride Level 99mmol/L Carbon Dioxide Level 23mmol/L Anion Gap 11 Blood Urea Nitrogen 14mg/dl Creatinine 0.94mg/dl Glucose Level 513mg/dl Calcium Level 8.1mg/dl Total Bilirubin 0.1mg/dl Direct Bilirubin 0.00mg/dl Indirect Bilirubin 0.1mg/dl Aspartate Amino Transf (AST/SGOT) 35IU/L Alanine Aminotransferase (ALT/SGPT) 51IU/L Alkaline Phosphatase 116IU/L Total Protein 6.2g/dl Albumin 3.2g/dl Globulin 3.00g/dl Albumin/Globulin Ratio 1.06 Lipase 598U/L Current Medications Medications (Trade) Dose Ordered Sig/Malik Route PRN Reason Start Time Stop Time Status Last Admin Dose Admin Miscellaneous Medication (Gi Cocktail (2)) 40 ml ONCE STAT PO 01/24/17 15:19 01/24/17 15:21 DC Belladonna/ Phenobarbital 2 tab 2 tab ONCE STAT PO 01/24/17 15:19 01/24/17 15:21 DC Sodium Chloride (NS) 1,000 ml @ 2,000 mls/hr Q30M STAT IV 01/24/17 15:26 01/24/17 15:55 DC 01/24/17 15:39 Insulin Human Lispro 12 unit 12 unit ONCE STAT SC 01/24/17 15:26 01/24/17 15:28 DC 01/24/17 16:04 Sodium Chloride 1,000 ml @ 1,000 mls/hr Q1H ONCE IV 01/24/17 18:00 01/24/17 18:55 DC Calcium Gluconate/ Sodium Chloride (Ca Gluc/NS) 110 ml @ 110 mls/hr ONCE ONCE IVPB 01/24/17 19:00 01/24/17 19:00 DC Procedures/MDM IV line was established patient was placed on monitoring analyst rhythm strip revealed a sinus rhythm at about 90 bpm with upright P and T waves. Patient was afebrile I administered 2 L normal saline intravenously for dehydration, blood sugar was elevated and I treated him here with lispro insulin 12 units subcutaneous injection 1. CBC was unremarkable, electrolytes revealed hyperglycemia, liver function tests normal, troponin negative. No signs or symptoms of DKA, labs do not suggest DKA. Calcium low at 8.1. I administered calcium supplementation 1 g IV 1. Given that this is the patient's second ED visit in just 2 days for complaints of weakness, abdominal pain, and hyperglycemia he will be admitted to a medical surgical bed for continued IV hydration, continued management, and blood sugar control. I spoke to his insurance directed physician Dr. Greenfield who agreed to this plan and accepted him at [facility]. Patient was made aware of his ED management today and the plan for admission and transfer. Patient purposely defecated on the floor while here in the ED and began cursing at his nurse, he was not willing to cooperate peacefully with medical staff and was escorted out of the emergency department. He no longer wanted to stay in the ED and no longer wanted to wait for transfer. Departure Diagnosis: Primary Impression: Abdominal pain Abdominal location: generalized Qualified Code: R10.84 - Generalized abdominal pain Additional Impressions: Acute hyperglycemia Hypocalcemia Elevated lipase Condition: Stable SALINA PEREZ MD Jan 24, 2017 19:09
== END 2017-01-24 18:55 | disposition left against medical advice (07) ==
LOC: E/R 14:36
DX: R10.84 Generalized abdominal pain (principal); R73.9 Hyperglycemia, unspecified; E83.51 Hypocalcemia; R74.8 Abnormal levels of other serum enzymes; F17.210 Nicotine dependence, cigarettes, uncomplicated; Z79.4 Long term (current) use of insulin
CPT/HCPCS: 80053; 80306; 82962; 83690; 85025; 96372; J1815; J7030; Z7502; Z7610; J0610

== ENCOUNTER 2017-05-07 01:03 | Emergency (ER) | END 2017-05-07 06:40 | disposition home or self-care (01) ==

== ENCOUNTER 2017-05-11 15:43 | Emergency (ER) | END 2017-05-11 19:31 | disposition home or self-care (01) ==

== ENCOUNTER 2017-05-16 05:07 | Inpatient (IN) | END 2017-05-18 14:00 | disposition home or self-care (01) | DRG 392 ==

== ENCOUNTER 2017-05-26 15:38 | Emergency (ER) | END 2017-05-27 00:39 | disposition home or self-care (01) ==

== ENCOUNTER 2017-06-01 20:08 | Emergency (ER) | END 2017-06-02 12:15 | disposition short-term general hospital (02) ==

== ENCOUNTER 2017-06-18 04:18 | Emergency (ER) | END 2017-06-18 10:20 | disposition home or self-care (01) ==

== ENCOUNTER 2017-06-24 01:39 | Emergency (ER) | END 2017-06-24 06:06 | disposition home or self-care (01) ==

== ENCOUNTER 2017-06-24 07:19 | Emergency (ER) | END 2017-06-24 09:43 | disposition home or self-care (01) ==

== ENCOUNTER 2017-07-09 22:35 | Emergency (ER) | END 2017-07-10 01:27 | disposition home or self-care (01) ==

== ENCOUNTER 2017-07-28 18:01 | Emergency (ER) | END 2017-07-29 05:00 | disposition short-term general hospital (02) ==

== ENCOUNTER 2018-02-14 04:41 | Emergency (ER) | END 2018-02-14 09:10 | disposition home or self-care (01) ==

== ENCOUNTER 2018-04-29 19:53 | Emergency (ER) | payer OTHER ==
[~2018-04-29] VITALS: Ht 170.2 cm; Wt 45.2 kg
[~2018-04-29 19:53] MED LIST changes: +DICY10CA40 PO; -DIPH1TAB PO; +INSU100C SQ; -INSU100I35 SQ; -LANT3I SC; +LEVEM SUBCUTANE; +ONDA4TAB14 PO
[2018-04-29 20:04] VITALS: Ht 170.2 cm; Wt 45.2 kg
[2018-04-29] MEDS ORDERED: SOD CHLORIDE 0.9% 1,000 ML IV STA (22:14)
[2018-04-30] MEDS ORDERED: SOD CHLORIDE 0.9% 1,000 ML IV ONE (00:30)
[2018-04-30] MEDS ORDERED: SOD CHLORIDE 0.9% 1,000 ML IV SCH (00:34)
[2018-04-30] MEDS ORDERED: NS + KCL 30 MEQ 1,000 ML IV SCH (00:34)
[2018-04-30] MEDS ORDERED: DEXTROSE 10 %/0.45 % NACL 1,000 ML IV SCH (00:34)
[2018-04-30] MEDS ORDERED: D10/0.45% NACL + KCL 40 MEQ 1,000 ML IV SCH (00:34)
[2018-04-30] MEDS ORDERED: D10/0.45% NACL + KCL 30 MEQ 1,000 ML IV SCH ×2 (00:34→01:30)
[2018-04-30] MEDS ORDERED: NS + KCL 40 MEQ 1,000 ML IV SCH (00:34)
[2018-04-30] MEDS ORDERED: INSULIN REGULAR, HUMAN 100 UNIT in SOD CHLORIDE 0.9% 100 ML IV SCH ×2 (01:00)
[2018-04-30] MEDS ORDERED: DEXTROSE 50% 50 ML SYRINGE IV PRN ×2 (01:00)
[2018-04-30] MEDS ORDERED: LACTATED RINGER S IV ONE (01:00)
--- NOTE | 2018-04-30 01:15 | ERD ---
ER Documentation Chief Complaint Chief Complaint C/O DIARRHEA X2 WEEKS, BLOOD IN STOOL X1 WEEK HPI This is a 43-year-old man with a history of drugs, methamphetamines, alcohol abuse, and diabetes mellitus presenting with diarrhea. He has poorly controlled diabetes and is noncompliant with his medications. He states he has had loose stools for most of the day today. Has had loose stools times 2 weeks and has noted blood in his stools as well. He denies vomiting, no trauma, no fevers or chills, no chest pain or shortness of breath ROS All systems reviewed and are negative except as per history of present illness. Medications Home Meds Active Scripts Ondansetron (Ondansetron Odt) 4 Mg Tab.rapdis, 4 MG PO Q6H PRN for NAUSEA AND/OR VOMITING, #20 TAB Prov:MAHOGANY DANIELS MD 02/14/18 Dicyclomine HCl (Dicyclomine HCl) 10 Mg Capsule, 10 MG PO TID PRN for ABDOMINAL CRAMPING, #20 CAP Prov:MAHOGANY DANIELS MD 02/14/18 Reported Medications Insulin Detemir (Levemir) 100 Unit/1 Ml Vial, 20 UNITS SUBCUTANE QHS 02/14/18 Insulin Lispro (Humalog) 100 Unit/1 Ml Cartridge, 8-12 UNIT SQ AC A, EA 02/14/18 Allergies Allergies: Coded Allergies: No Known Allergy (Unverified , 06/01/17) PMhx/Soc Drug abuse and diabetes mellitus History of Surgery: No Anesthesia Reaction: No Hx Neurological Disorder: No Hx Respiratory Disorders: No Hx Cardiac Disorders: No Hx Psychiatric Problems: Yes (drug use ) Hx Miscellaneous Medical Probl: Yes (diabetes ) Hx Alcohol Use: No Hx Substance Use: Yes (marijuana and crystal meth) Hx Tobacco Use: No Smoking Status: Current every day smoker FmHx Family History: No diabetes Physical Exam Vitals Vital Signs Date Temp Pulse Resp B/P (MAP) Pulse Ox O2 O2 Flow FiO2 Time Delivery Rate 04/29/18 97.7 86 19 122/89 100 Room Air 22:15 (100) 04/29/18 97.0 82 18 98/70 (79) 100 20:04 Physical Exam Const: No acute distress, appears dehydrated, afebrile, alcohol on breath HEENT: Dry mucous membranes, no jaundice or icterus Resp: Clear to auscultation bilaterally Cardio: Regular rate and rhythm, no murmurs Abd: Soft, non tender, non distended. Skin: No petechiae or rashes Back: No midline or flank tenderness Ext: No cyanosis, or edema Neur: Awake and alert x3, no focal deficits or facial asymmetry Psych: Normal Mood and Affect Result Diagram: 04/29/18230704/29/182307 Results 24 hrs Laboratory Tests Test 04/29/18 23:08 04/30/18 00:03 04/30/18 00:56 White Blood Count 10.7 10^3/ul Red Blood Count 4.20 10^6/ul Hemoglobin 11.9 g/dl Hematocrit 38.1 % Mean Corpuscular Volume 90.7 fl Mean Corpuscular 28.3 pg Hemoglobin Mean Corpuscular 31.2 g/dl Hemoglobin Concent Red Cell Distribution 14.0 % Width Platelet Count 276 10^3/UL Mean Platelet Volume 10.2 fl Immature Granulocytes % 0.600 % Neutrophils % 66.5 % Lymphocytes % 20.1 % Monocytes % 11.2 % Eosinophils % 1.1 % Basophils % 0.5 % Nucleated Red Blood Cells 0.0 /100WBC % Immature Granulocytes # 0.060 10^3/ul Neutrophils # 7.1 10^3/ul Lymphocytes # 2.2 10^3/ul Monocytes # 1.2 10^3/ul Eosinophils # 0.1 10^3/ul Basophils # 0.1 10^3/ul Nucleated Red Blood Cells 0.0 10^3/ul # Prothrombin Time 12.9 Sec Prothrombin Time Ratio 1.0 INR International 0.96 Normalized Ratio Activated 28.7 Sec Partial Thromboplast Time Sodium Level 144 mmol/L Potassium Level 3.9 mmol/L Chloride Level 112 mmol/L Carbon Dioxide Level 16 mmol/L Anion Gap 16 Blood Urea Nitrogen 16 mg/dl Creatinine 2.02 mg/dl Est Glomerular Filtrat 44 mL/min Rate mL/min Glucose Level 254 mg/dl Calcium Level 9.5 mg/dl Total Bilirubin 0.0 mg/dl Direct Bilirubin 0.00 mg/dl Indirect Bilirubin 0.0 mg/dl Aspartate Amino 27 IU/L Transf (AST/SGOT) Alanine 20 IU/L Aminotransferase (ALT/SGPT ) Alkaline Phosphatase 138 IU/L Troponin I < 0.012 ng/ml Total Protein 8.5 g/dl Albumin 4.1 g/dl Globulin 4.40 g/dl Albumin/Globulin Ratio 0.93 Lipase 637 U/L Blood Gas Specimen Source Blood arterial Arterial Blood Date Drawn 04/30/2018 12:15:55 AM Arterial Blood pH 7.201 (Temp corrected) Arterial Blood pCO2 33.4 mmhg (Temp correct) Arterial Blood pO2 112.1 mmHG (Temp corrected) Arterial Blood HCO3 12.8 mmol/L Arterial Blood Base Excess -14.1 mmol/L Arterial Blood 97.2 mmHG Oxygen Saturation Dung Test ACCEPTAB Arterial Blood Gas Left Radial Puncture Site Arterial 0 % Blood Carboxyhemoglobin Arterial Blood 0.2 % Methemoglobin Oxyhemoglobin Percent 97.0 % Blood Gas Temperature 37.0 C Blood Gas Modality ROOM AIR FiO2 21.0 % Blood Gas Critical Value Yenni PEREZ MD Read Back Blood Gas Notified Whom MA Blood Gas Notified Time 04/30/2018 12:32:45 AM Bedside Glucose 252 mg/dL Current Medications Medications Dose Sig/Malik Start Time Status Last (Trade) Ordered Route PRN Stop Time Admin Dose Reason Admin Sodium 1,000 ml @ Q1H STAT 04/29/18 DC 04/29/18 Chloride 1,000 mls/hr IV 22:14 23:18 04/29/18 23:13 Sodium 1,000 ml @ Q1H ONCE 04/30/18 04/30/18 Chloride 1,000 mls/hr IV 00:30 00:08 04/30/18 01:29 Potassium 1,000 ml @ Q0M IV 04/30/18 Chloride/Sodi 0 mls/hr 00:34 um Chloride Potassium 1,000 ml @ Q0M IV 04/30/18 Chloride/Dext 0 mls/hr 00:34 jorge/ Sod Cl Potassium 1,000 ml @ Q0M IV 04/30/18 Chloride/Sodi 0 mls/hr 00:34 um Chloride Potassium 1,000 ml @ Q0M IV 04/30/18 Chloride/Dext 0 mls/hr 00:34 jorge/ Sod Cl Sodium 1,000 ml @ Q0M IV 04/30/18 Chloride 0 mls/hr 00:34 1,000 ml @ Q0M IV 04/30/18 Dextrose/Sodi 0 mls/hr 00:34 um Chloride Insulin 101 ml @ ER DKA 04/30/18 Human 4.57 mls/hr PROTOCOL IV 01:00 Regular 100 unit/ Sodium Chloride Lactated 450 ml @ ONCE ONCE 04/30/18 Ringer's 450 mls/hr IV 01:00 04/30/18 01:59 HYPOGLYCEM 04/30/18 Miscellaneous HYPOGLYCEMIA PROTOCOL PRN 01:00 TREATMENT XX Information .HYPOGLYCEMIA (* PROTOCOL Miscellaneous Pharmacy Order) Dextrose 50 ml Q15M PRN 04/30/18 (D50w IV 01:00 Syringe) .DECREASED GLUCOSE Dextrose 25 ml Q15M PRN 04/30/18 (D50w IV 01:00 Syringe) .DECREASED GLUCOSE Procedures/MDM IV line was established patient was placed on monitor worker rhythm strip revealed a sinus rhythm at about 80 bpm with upright P and T waves. Patient was afebrile Patient had to be stripped of his clothing and taken outside and clean because of bowel movement he had on himself while in the ED I initially administered 2 L normal saline IV for dehydration CT scan of the abdomen and pelvis was also ordered given the patient's dehydration and diarrhea although he refused imaging and did not provide a reason as to why CBC was normal, electrolytes revealed acidosis with a bicarb of 16 and hyperglycemia at 254, liver function tests are normal, troponin was negative, patient refused to provide urine ABG revealed a pH of 7.2, PCO2 33, PO2 112 revealing metabolic acidosis After 2 L of IV saline patient's blood sugar remained just above 250 and I suspect he has acute alcoholic and diabetic ketoacidosis Critical Care: Time: 40 minutes, this was time separate from other billable procedures. Treatments/Evaluations: Close monitoring and treatment of unstable vital signs, cardiorespiratory, and neurologic status, while maintaining tight balance of fluid, respiratory, and cardiac interventions. I ordered IV crystalloid drip with potassium supplementation as well as insulin drip. I spoke to the patient's insurance directed provider and they recommended transfer to [facility]. Departure Diagnosis: Primary Impression: Hyperglycemia Additional Impressions: Drug abuse Alcohol abuse Alcoholic ketoacidosis Diabetic ketoacidosis Diabetes mellitus type: type 2 Diabetes mellitus complication detail: without coma Qualified Codes: E11.10 - Type 2 diabetes mellitus with ketoacidosis without coma Dehydration Diarrhea Diarrhea type: unspecified type Qualified Codes: R19.7 - Diarrhea, unspecified Condition: SALINA Dumont MD Apr 30, 2018 01:15
[2018-04-30] MEDS ORDERED: INSULIN GLARGINE [LANTus] (100 UNITS/ML) SYG SC SCH ×2 (04:30→08:00)
[2018-04-30 06:55] VITALS: BP 125/85; PULSE 96; RESP 12
== END 2018-04-30 07:58 | disposition short-term general hospital (02) ==
LOC: E/R 19:53
DX: E11.65 Type 2 diabetes mellitus with hyperglycemia (principal); F10.10 Alcohol abuse, uncomplicated; F15.10 Other stimulant abuse, uncomplicated; E11.10 Type 2 diabetes mellitus with ketoacidosis without coma; E86.0 Dehydration; F17.210 Nicotine dependence, cigarettes, uncomplicated; Z79.4 Long term (current) use of insulin
CPT/HCPCS: 36415; 36600; 80048; 80053; 80307; 82803; 82962; 83036; 83690; 83735; 84100; 84484; 85025; 85610; 85730; 96372; 96374; J1815; J7030; J7120; Z7502; Z7610

== ENCOUNTER 2018-10-26 23:15 | Emergency (ER) | payer OTHER ==
[~2018-10-26] VITALS: Ht 170.2 cm; Wt 61.4 kg
[~2018-10-26 23:15] MED LIST changes: +IBUP-1542 PO
[2018-10-26 23:19] VITALS: Ht 170.2 cm; Wt 61.4 kg
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
[2018-10-27] MEDS ORDERED: IBUPROFEN 600 MG TAB PO ONE (03:30)
[2018-10-27 07:14] VITALS: BP 108/66; PULSE 94; RESP 18
== END 2018-10-27 10:41 | disposition home or self-care (01) ==
LOC: FTE 23:15
DX: S22.41XA Multiple fractures of ribs, right side, initial encounter for closed fracture (principal); E11.9 Type 2 diabetes mellitus without complications; F17.210 Nicotine dependence, cigarettes, uncomplicated; Y04.8XXA Assault by other bodily force, initial encounter; Z79.4 Long term (current) use of insulin
CPT/HCPCS: 71100; Z7502; Z7610; 99283